=== PATIENT | male | born 1965 | race Caucasian/White ===

== ENCOUNTER 2020-08-06 12:40 | Outpatient (CLI) | payer BC, SELFPAY ==
--- NOTE | ~2020-08-06 | US_ITS ---
EXAMINATION: US aorta DATE: 08/06/2020 13:28 INDICATION: Hypertensive urgency. Family history of abdominal aortic aneurysm. TECHNIQUE: Grayscale, color Doppler, and pulsed Doppler images of the aorta and common iliac arteries were obtained. COMPARISON: None. FINDINGS: The aorta is normal in caliber. The right common iliac artery is normal in caliber. The left common i liac artery is normal in caliber. IMPRESSION: 1. No abdominal aortic aneurysm. Reviewed, dictated and finalized at location A. [facility] [facility] JUDGE
--- NOTE | ~2020-08-06 | US_ITS ---
EXAMINATION: US retroperitoneal duplex ltd DATE: 08/06/2020 13:26 INDICATION: Hypertension. TECHNIQUE: Multiple grayscale, color Doppler, and pulsed Doppler images of the kidneys and renal mg krista were obtained. COMPARISON: None. FINDINGS: The kidneys are normal in size. There is a 3.3 cm cyst in right kidney. The aorta peak systolic veloc ity is 103 cm/s. The right renal artery peak systolic velocity is 56 cm/s in the proximal segment, 60 cm/s in the mid segment, and 42 cm/s in the distal segment. The left renal artery peak systolic [place] is 83 cm/s in the proximal segment, 76 cm/s in the mid segment, and 79 cm/s in the distal segmen t. IMPRESSION: 1. No Doppler evidence of renal artery stenosis. Reviewed, dictated and finalized at location A. CONNECTOR
[2020-08-06 13:34] LABS: Basophils Absolute Auto 0.1 K/mm3 (0.0-0.1); Basophils Percent Auto 1.2 % (0.2-1.2); Eosinophils Absolute Auto 0.1 K/mm3 (0-0.3); Eosinophils Percent Auto 2.4 % (0-4.4); Hematocrit 52.6 % (42.0-52.0); Hemoglobin 19.2 g/dL (14.0-18.0); Immature Granulocyte Absolute 0.01 K/mm3 (0.00-0.031); Immature Granulocyte Percent A 0.2 % (0-0.5); Lymphocytes Absolute Auto 1.53 K/mm3 (0.9-3.2); Lymphocytes Percent Auto 30.1 % (18.3-44.2); Mean Corpuscular HGB Conc 36.5 g/dl (32-36); Mean Corpuscular Hemoglobin 33.2 pg (26-34); Mean Corpuscular Volume 90.8 fl (80-100); Mean Platelet Volume 9.4 fl (7.4-10.4); Monocytes Absolute Auto 0.5 K/mm3 (0.1-0.6); Neutrophils Absolute Auto 2.9 K/mm3 (1.3-6.7); Neutrophils Percent Auto 57.1 % (45.5-73.1); Platelet Count Result 167 k/mm3 (150-375); Red Blood Count 5.79 M/mm3 (4.6-6.20); Red Cell Distribution Width 12.4 % (11.5-14.5); White Blood Count 5.1 K/mm3 (4.5-10.0)
[2020-08-06 13:46] LABS: Alanine Aminotransferase 52 U/L (4-50); Albumin Level 4.5 g/dL (3.5-5.1); Alkaline Phosphatase 52 U/L (38-126); Anion Gap 7 mmol/L (8-16); Aspartate Amino Transferase 36 U/L (17-59); Bilirubin,Total 1.8 mg/dL (0.2-1.3); Blood Urea Nitrogen 23 mg/dL (9-20); Calcium 9.3 mg/dL (8.4-10.2); Carbon Dioxide 33 mmol/L (22-30); Chloride 101 mmol/L (98-107); Estimated Glomerular Filt Rate 57; Glucose 97 mg/dL (75-110); Potassium 4.6 mmol/L (3.4-5.0); Sodium 141 mmol/L (137-145)
== END 2020-08-06 12:41 | disposition home or self-care (01) ==
PROVIDERS: PCP Internal Medicine; Visit Provider Nurse Practitioner
DX: I16.0 Hypertensive urgency (principal); N28.1 Cyst of kidney, acquired
CPT/HCPCS: 36415; 76775; 80053; 85025; 93976

== ENCOUNTER 2020-09-09 06:22 | Outpatient (CLI) | payer BC, SELFPAY ==
--- NOTE | 2020-10-24 10:37 | WPDHOMESLEEP ---
Sleep Study - Home Unattended Date of Study: 09/09/20 Ordering Provider: Nora Suazo NP Interpreting Physician: Natalia Raman MD Home Sleep Study Type: Apnea Link Air Height: 1.73 m Weight: 95.254 kg Body Mass Index: 31.9 Neck Circumference (inches): 17.75 [place]: 9 Reason for Sleep Study difficulty sleeping through the night Sleep History Husam Hoover is a 54 year old man with poorly controlled hypertension, reports difficulty sleeping through the night. He occasionally snores and occasionally is loud enough that others complain about it. He rarely awakens at night with heartburn, belching or coughing. He never awakens from sleep feeling short of breath. He occasionally has trouble sleeping with a cold. He does not wake up gasping for breath at night and does not have breathing problems at night observed by others. He occasionally sweats excessively at night. He does not notice his heart pounding or beating irregularly at night. He rarely falls asleep during the day, never involuntarily or while driving. He does not fall asleep during physical effort. He does not have loss of muscle tone with strong emotion. He does not have daytime difficulties due to excessive sleepiness. He does not feel paralyzed on waking or falling asleep. He frequently has vivid dreamlike scenes upon awakening or falling asleep. He is not afraid to go to sleep. He does not have nightmares. He occasionally remembers his dreams. He frequently has racing thoughts. He rarely feels sad or depressed. He occasionally has anxiety. He occasionally has muscular tension and notices parts of his body jerking. He rarely kicks at night. He rarely has crawling and aching feelings in his legs. He rarely has any leg pain during the night. He does not have morning jaw pain. He frequently grinds his teeth during sleep. He occasionally has bothered by pain during the day, occasionally is awakened by pain at night, has feelings of stiffness in the morning, sore achy muscles and wakes with pain in the neck and spine joints. He has elevated H&H, 19.2 /52.6% on 2019. Normal bedtime is 9:00 p.m. falling asleep within 10-15 minutes, waking 1 or 2 times for a few minutes to urinate. He wakes in the morning at 5:30 a.m.. On the weekends his bedtime is 10:00 p.m. he wakes at 6:30 a.m.. He does take naps in the early afternoon or evening. A short nap can be refreshing. Most of the time he feels good in the morning and wakes up feelingrefreshed. Habiats: Never smoked tobacco. He drinks caffeine and alcohol. Amounts are not listed. No recreational drugs. [facility] Past Medical History Medical History (Updated 10/24/20 @ 10:49 by Natalia Raman MD) Hypertension Rupture of colon 2018 Surgical History Surgical History (Updated 07/30/20 @ 08:51 by Shelly Busch) History of hernia repair 2019 Family History Family History (Updated 07/30/20 @ 09:29 by Shelly Busch) Mother Hypertension Breast cancer Atrial fibrillation Father Aortic aneurysm Social History Social History (Updated 07/30/20 @ 08:53 by Shelly Busch) Smoking status: Never smoker Alcohol intake: current Medications Home Medications Medication Instructions Recorded Confirmed Type testosterone cypionate 200 mg/mL 200 mg IM ONCE 07/30/20 08/06/20 History intramuscular kit triamcinolone acetonide 55 mcg INTRANASAL 07/30/20 08/13/20 History mcg/actuation nasal spray,aerosol cetirizine 10 mg tablet 10 mg PO DAILY 08/06/20 08/13/20 History losartan 100 mg tablet 100 mg PO DAILY #90 tablet 08/13/20 08/13/20 Rx amlodipine 10 mg tablet 10 mg PO DAILY #30 tablet 09/01/20 Rx hydrochlorothiazide 25 mg tablet 25 mg PO DAILY #90 tablet 10/24/20 Rx Sleep Procedure This test was performed using 4 channel monitoring including respiratory effort channel, snoring channel, heart rate channel, and oxygen saturation channel. This study was scored using CM
[2020-10-24 10:53] VITALS: BMI 31.9
== END 2020-09-09 07:43 | disposition home or self-care (01) ==
LOC: ANHCSM 09-23 06:22
PROVIDERS: PCP Internal Medicine; Visit Provider Nurse Practitioner
DX: G47.30 Sleep apnea, unspecified (principal); G47.33 Obstructive sleep apnea (adult) (pediatric)
CPT/HCPCS: 95806

== ENCOUNTER → 2021-01-17 02:09 | Outpatient (CLI) | payer BC, SELFPAY ==
[2021-01-17 19:16] LABS: SARS-CoV-2 RNA PCR Negative
== END ==
PROVIDERS: PCP Internal Medicine; Visit Provider Internal Medicine Critical Care Medicine
DX: Z01.812 Encounter for preprocedural laboratory examination (principal); Z20.822 Contact with and (suspected) exposure to COVID-19
CPT/HCPCS: C9803; U0003; U0005

== ENCOUNTER 2021-01-21 10:35 | Outpatient (CLI) | payer BC, SELFPAY ==
--- NOTE | 2021-02-02 12:37 | WPDSLEEPSTUD ---
Sleep Study Ordering Provider: Nora Suazo NP Interpreting Physician: Natalia Raman MD Sleep Study Type: CPAP Titration Height: 1.73 m Weight: 95.254 kg Body Mass Index: 31.9 Neck Circumference (inches): 17.5 [place]: 8 Reason for Sleep Study Home sleep test 09/09/2020 with mild OLIVIA incluidng 40% central and mixed events, presents for CPAP titration. Sleep History Husam Hoover is a 54 year old man with poorly controlled hypertension, reports difficulty sleeping through the night. He occasionally snores and occasionally is loud enough that others complain about it. He rarely awakens at night with heartburn, belching or coughing. He never awakens from sleep feeling short of breath. He occasionally has trouble sleeping with a cold. He does not wake up gasping for breath at night and does not have breathing problems at night observed by others. He occasionally sweats excessively at night. He does not notice his heart pounding or beating irregularly at night. He rarely falls asleep during the day, never involuntarily or while driving. He does not fall asleep during physical effort. He does not have loss of muscle tone with strong emotion. He does not have daytime difficulties due to excessive sleepiness. He does not feel paralyzed on waking or falling asleep. He frequently has vivid dreamlike scenes upon awakening or falling asleep. He is not afraid to go to sleep. He does not have nightmares. He occasionally remembers his dreams. He frequently has racing thoughts. He rarely feels sad or depressed. He occasionally has anxiety. He occasionally has muscular tension and notices parts of his body jerking. He rarely kicks at night. He rarely has crawling and aching feelings in his legs. He rarely has any leg pain during the night. He does not have morning jaw pain. He frequently grinds his teeth during sleep. He occasionally has bothered by pain during the day, occasionally is awakened by pain at night, has feelings of stiffness in the morning, sore achy muscles and wakes with pain in the neck and spine joints. He has elevated H&H, 19.2 /52.6% on 2019. Normal bedtime is 9:00 p.m. falling asleep within 10-15 minutes, waking 1 or 2 times for a few minutes to urinate. He wakes in the morning at 5:30 a.m.. On the weekends his bedtime is 10:00 p.m. he wakes at 6:30 a.m.. He does take naps in the early afternoon or evening. A short nap can be refreshing. Most of the time he feels good in the morning and wakes up feelingrefreshed. Habiats: Never smoked tobacco. He drinks caffeine and alcohol. Amounts are not listed. No recreational drugs. [facility] Past Medical History Medical History (Updated 02/02/21 @ 12:40 by Natalia Raman MD) Erythrocytosis Hypertension Obstructive sleep apnea (~08/2020) Rupture of colon 2017 Surgical History Surgical History (Updated 07/30/20 @ 08:51 by Shelly Busch) History of hernia repair 2018 Family History Family History (Updated 07/30/20 @ 09:29 by Shelly Busch) Mother Hypertension Breast cancer Atrial fibrillation Father Aortic aneurysm Social History Social History (Updated 07/30/20 @ 08:53 by Shelly Busch) Smoking status: Never smoker Alcohol intake: current Medications Home Medications Medication Instructions Recorded Confirmed Type testosterone cypionate 200 mg/mL 200 mg IM ONCE 07/30/20 08/06/20 History intramuscular kit triamcinolone acetonide 55 mcg INTRANASAL 07/30/20 08/13/20 History mcg/actuation nasal spray,aerosol cetirizine 10 mg tablet 10 mg PO DAILY 08/06/20 08/13/20 History losartan 100 mg tablet 100 mg PO DAILY #90 tablet 08/13/20 08/13/20 Rx amlodipine 10 mg tablet 10 mg PO DAILY #30 tablet 11/25/20 Rx hydrochlorothiazide 25 mg tablet 25 mg PO DAILY #90 tablet 01/08/21 Rx Sleep Procedure This test was performed using the [employer] multiple channel system including EOG, EEG, submental EMG, EKG, na
[2021-02-02 13:02] VITALS: BMI 31.9
== END 2021-01-21 10:36 | disposition home or self-care (01) ==
LOC: ANHCSM 10:35
PROVIDERS: PCP Internal Medicine; Visit Provider Nurse Practitioner
DX: G47.33 Obstructive sleep apnea (adult) (pediatric) (principal)
CPT/HCPCS: 95811

== ENCOUNTER 2024-02-29 09:30 | Outpatient (CLI) | payer OTHER, SELFPAY ==
[2024-03-20 16:27] VITALS: BMI 34.0
--- NOTE | 2024-03-20 16:27 | WPDHOMESLEEP ---
Sleep Study - Home Unattended Date of Study: 02/29/24 Ordering Provider: Georgia Cooper DO Interpreting Provider: Georgia Cooper DO Home Sleep Study Type: Watch PAT Height: 1.75 m Weight: 104.326 kg Body Mass Index: 34.0 Neck Circumference (inches): 17 [place]: 7 Reason for Sleep Study Insomnia Sleep History The sleep questionnaire form was unavailable. [facility] Past Medical History Medical History Erythrocytosis Hypertension Obstructive sleep apnea (~08/2020) Rupture of colon 2018 Surgical History Surgical History History of hernia repair 2019 Family History Family History Mother Hypertension Breast cancer Atrial fibrillation Father Aortic aneurysm Social History Social History Social History: caffeine- 2 cups coffee daily Smoking status: Never smoker Alcohol intake: current Drinks per week: 5 Substance use: never Lack of Transportation: No Lack of Food: Never True Current Housing: I Have Housing Concerned About Future Housing: No Difficulty Paying Gas/Electric Bills: No Difficulty Paying for Meds: No Currently Unemployed: No Education: Bachelor's Degree Difficulty w/ Childcare or Family Care: No Medications Home Medications Medication Instructions Recorded Confirmed Type loratadine 10 mg tablet (Claritin) 10 mg PO DAILY 12/30/22 02/16/24 History amlodipine 10 mg tablet 10 mg PO DAILY #90 tabs 09/23/23 02/16/24 Rx cholecalciferol (vitamin D3) 1 tablet PO DAILY@0630 09/23/23 02/16/24 History fluticasone propionate 50 1 spray intranasal DAILY PRN 09/23/23 02/16/24 History mcg/actuation nasal spray,suspension (Flonase Allergy Relief) hydrochlorothiazide 25 mg tablet 25 mg PO DAILY #90 tabs 09/23/23 02/16/24 Rx losartan 100 mg tablet 100 mg PO DAILY #90 tabs 09/23/23 02/16/24 Rx omeprazole magnesium 20 mg 20 mg PO DAILY 09/23/23 02/16/24 History tablet,delayed release (Prilosec OTC) tadalafil 10 mg tablet (Cialis) 10 mg PO DAILY PRN sexual activity 09/23/23 02/16/24 Rx #30 tabs testosterone 30 mg/actuation (1.5 3 pump topical DAILY 09/23/23 02/16/24 History mL) transderm solution metered pump eszopiclone 2 mg tablet (Lunesta) 2 mg PO QHS #1 tablet 02/16/24 02/16/24 Rx melatonin 10 mg capsule 20 mg PO QHS 02/16/24 02/16/24 History Sleep Procedure The sleep study was completed using [employer] a technically adequate device with seven channels: peripheral arterial tone, actigraphy, body position, snore, respiratory movement, pulse oximetry, sleep staging, and heart rate. Prior to using the device, the patient received verbal and written instructions for its application and was provided with the help desk phone number for additional telephonic instruction with 24-hour availability of qualified personnel to answer questions. The study was scored using CMS guidelines. Sleep Architecture The total recording time is 7 hrs, 39 min. The total sleep time is 6 hrs, 25 min. Sleep latency is 6 minutes. REM latency is 75 minutes. The patient had 10 episodes of waking. Sleep architecture shows 18.4% deep sleep, 56.6% light sleep, and (as % Total Sleep Time) showed NREM (Light 56.6%; Deep 18.4%), and a 24.9% stage REM. The patient spent 64.0% of total sleep time in the supine position. Sleep efficiency was 83.88%. Respiratory Analysis The overall AHI (pAHI 4%:) is 10.9. The central AHI is 0.3. The AHI was 7.5 in NREM and 21.2 in REM sleep. The AHI was 10.6 in Supine and 11.4 in Non-supine sleep. Percent of Richard Whitman respirations is 0.0. Oximetry Data The oxygen desaturation index (KUSHAL 4%:) is 10.7. The mean saturation is 92%, and the lowest saturation is 82%. Time spent with saturation < 88% is 6.0 minutes. Snoring
== END 2024-03-02 10:16 | disposition home or self-care (01) ==
LOC: ANHCSM 09:32
PROVIDERS: PCP Internal Medicine; Visit Provider Family Medicine
DX: G47.33 Obstructive sleep apnea (adult) (pediatric) (principal)
CPT/HCPCS: 95800

== ENCOUNTER 2024-07-09 08:09 | Outpatient (CLI) | payer OTHER, SELFPAY ==
--- NOTE | ~2024-07-09 | US_ITS ---
Renal-Bladder ultrasound Clinical History: Abnormal kidney function Technique: Real-time sonographic imaging of the kidneys and urinary bladder was performed. Findings: The right kidney measures 13.4 cm in length and the left kidney measures 13.3 cm. There is no hydronephrosis or renal calculus identified. Renal cortical echogenicity is mildly increased. 7.2 cm right renal cyst present. The urinary bladder is moderately distended at the time of this exam. No intraluminal echoes are iden tified. No abnormal wall thickening is seen. Impression: Mildly echogenic kidneys suggest chronic medical renal disease. 7.2 cm right renal cyst. Reviewed, dictated and finalized at location . Impression: Mildly echogenic kidneys suggest chronic medical renal disease. 7.2 cm right renal cyst.
== END 2024-07-09 08:10 | disposition home or self-care (01) ==
LOC: MICIMG 08:11
PROVIDERS: PCP Internal Medicine; Visit Provider Internal Medicine Nephrology
DX: R94.4 Abnormal results of kidney function studies (principal); N28.1 Cyst of kidney, acquired
CPT/HCPCS: 76775